=== PATIENT | male | born 1985 | race Two or more races ===

== ENCOUNTER 2018-08-09 19:05 | Emergency (ER) | payer OTHER ==
[~2018-08-09] VITALS: Ht 167.6 cm; Wt 62.0 kg
[2018-08-09] MEDS ORDERED: HALOPERIDOL LACTATE 5MG/ML VIAL IM ONE (19:45)
[2018-08-09] MEDS ORDERED: SODIUM CHLORIDE 0.9% 1000ML BAG (SEPSIS BOLUS) IV ONE (19:45)
[2018-08-09] MEDS ORDERED: LORAZEPAM 2MG/ML CPJ IM ONE (19:45)
[2018-08-09] MEDS ORDERED: DIPHENHYDRAMINE 50MG/ML VIAL IM ONE (19:45)
[2018-08-09 20:03] LABS: BASOPHILS % 0.3 % (0.0-2.0); HEMOGLOBIN. 11.2 g/dL (14.0-18.0); MEAN CORPUSCULAR HEMOGLOBIN 18.7 pg (28.0-32.0); MEAN CORPUSCULAR VOLUME 61.9 fL (80.0-94.0); MEAN PLATELET VOLUME 8.5 fl (7.4-10.4); MONOCYTES % 4.6 % (2.0-8.0); NEUTROPHILS % 83.1 % (40.0-76.0); PLATELET 317 x1000/uL (130-400); RED BLOOD CELL COUNT 5.99 mill/uL (4.7-6.1); RED CELL DISTRIBUTION WIDTH 20.1 % (11.6-14.6)
[2018-08-09 20:07] LABS: CHLORIDE 102 mEq/L (98-107)
[2018-08-09 20:11] LABS: ETHANOL BLOOD < 10 mg/dL
[2018-08-09 20:20] LABS: INR 1.1; PROTHROMBIN TIME 11.1 sec (9.6-11.0)
[2018-08-09 21:00] LABS: PLATELET ESTIMATE NORMAL
[2018-08-09 21:19] LABS: CLARITY URINE CLEAR (CLEAR); COLOR URINE YELLOW (YELLOW); KETONES URINE 3+ (NEGATIVE); LEUKOCYTE ESTERASE URINE NEGATIVE (NEGATIVE); NITRITE URINE NEGATIVE (NEGATIVE); OCCULT BLOOD URINE NEGATIVE (NEGATIVE); PROTEIN URINE NEGATIVE (NEGATIVE); SPECIFIC GRAVITY URINE 1.015 (1.005-1.030); UROBILINOGEN URINE 0.2 E.U./dL (0.2-1.0)
[2018-08-09 21:34] LABS: PHENCYCLIDINE URINE SCREEN NEGATIVE (NEGATIVE)
[2018-08-09 21:35] LABS: *AMPHETAMINES SCREEN URINE NEGATIVE (NEGATIVE); *BARBITURATES SCREEN URINE NEGATIVE (NEGATIVE); *BENZODIAZEPINES SCREEN URINE NEGATIVE (NEGATIVE); *COCAINE SCREEN URINE NEGATIVE (NEGATIVE); CANNABINOID URINE SCREEN PRESUMTIVE POSITIVE (NEGATIVE); METHADONE URINE SCREEN NEGATIVE (NEGATIVE); OPIATES URINE SCREEN NEGATIVE (NEGATIVE)
[2018-08-09] MEDS ORDERED: LORAZEPAM 2MG/ML CPJ IV ONE (22:30)
[2018-08-09] MEDS ORDERED: VANCOMYCIN 1 G PREMIX 200 ML IV SCH (22:30)
[2018-08-09] MEDS ORDERED: CEFTRIAXONE 2 G PREMIX 50 ML IV ONE (22:30)
[2018-08-09] MEDS ORDERED: DEXAMETHASONE 10 MG/ML VIAL IV ONE (22:30)
[2018-08-09] MEDS ORDERED: LIDOCAINE HCL/PF 1% 10 MG/ML 5ML VIAL IJ ONE (23:30)
[2018-08-10 01:16] LABS: GLUCOSE CSF 84 mg/dL (41-75)
[2018-08-10 11:05] VITALS: BP 115/63
== END 2018-08-10 11:11 | disposition left against medical advice (07) ==
LOC: ER 19:05 → EDBEDREQTM 08-10 01:52 → EDBEDREQ 08-10 01:52 → EDBEDREQSVC 08-10 01:52 → EDBEDREQDT 08-10 01:52 → ENRESERV 08-10 10:05 → CANRESERV 08-10 10:05 → ENRESERV 08-10 10:07 → ER 08-10 11:11 → CANBEDREQ 08-10 13:50
DX: A41.9 Sepsis, unspecified organism (principal); R65.20 Severe sepsis without septic shock; R41.82 Altered mental status, unspecified
CPT/HCPCS: 36415; 62270; 70450; 71045; 80053; 80305; 80307; 80320; 80329; 81003; 82945; 83605; 84145; 84157; 84443; 84484; 85025; 85610; 86592; 87040; 87070; 87086; 87205; 89050; 93005; 96361; 96365; 96367; 96372; 96375; 99291; J0696; J1100; J1200; J1630; J2060; J3370; J3490; J7030; Z7610; G0480